=== PATIENT | female | born 1950 | race Two or more races ===

== ENCOUNTER 2018-12-22 07:28 | Outpatient (CLI) | payer OTHER | END 2018-12-22 07:38 | disposition home or self-care (01) | LOC: MAMO-SONO 07:28 | DX: Z12.31 Encounter for screening mammogram for malignant neoplasm of breast (principal); Z87.898 Personal history of other specified conditions ==

== ENCOUNTER 2019-12-28 09:44 | Outpatient (CLI) | payer OTHER | END 2019-12-28 09:51 | disposition home or self-care (01) | LOC: MAMO-SONO 09:44 | PROVIDERS: ATTEND Specialist | DX: Z12.31 Encounter for screening mammogram for malignant neoplasm of breast (principal) ==

== ENCOUNTER 2020-01-19 11:11 | Outpatient (CLI) | payer OTHER | END 2020-01-19 11:20 | disposition home or self-care (01) | LOC: SONOGRAMA 11:11 → MAMO-SONO 11:45 | PROVIDERS: ATTEND Specialist | DX: R31.29 Other microscopic hematuria (principal) ==

== ENCOUNTER 2020-02-04 12:41 | Outpatient (CLI) | payer OTHER | END 2020-02-04 12:53 | disposition home or self-care (01) | LOC: NUCLEAR 12:41 | PROVIDERS: ATTEND Specialist | DX: M81.0 Age-related osteoporosis without current pathological fracture (principal) ==